=== PATIENT | female | born 1965 | race Two or more races ===

== ENCOUNTER 2018-03-19 15:16 | Emergency (ER) | payer SELFPAY | END 2018-03-19 16:40 | disposition home or self-care (01) | LOC: ER 15:16 | DX: L25.9 Unspecified contact dermatitis, unspecified cause (principal); F17.210 Nicotine dependence, cigarettes, uncomplicated; Z90.710 Acquired absence of both cervix and uterus; Z98.890 Other specified postprocedural states | CPT/HCPCS: 99283 ==

== ENCOUNTER 2019-10-23 15:07 | Emergency (ER) | payer SELFPAY ==
[~2019-10-23] VITALS: Ht 154.9 cm; Wt 81.0 kg
[~2019-10-23 15:07] MED LIST: PRED-220 PO; TRIA15OI TP
--- NOTE | 2019-10-23 15:53 | PHYS DOC ---
Past Medical History Past Medical History: No Pertinent History Past Surgical History: , Hysterectomy Smoking Status: Light Tobacco Smoker Alcohol Use: None Drug Use: None Adult General Chief Complaint Chief Complaint: NEURO SYMPTOMS/DEFICITS [facility] HPI Patient is a 54 year old female patient who presents with some left arm and left face numbness. Patient reports she has had this discomfort to her face for the last 10 days, states for approximately the last month she has had similar discomfort to her left arm. States she had felt some congestion, states she had taken some Mucinex yesterday, which did seem to make her feel better however she has not taken any since then. Also states she had taken a penicillin last night thinking she had an infection, to see if this would help her discomfort. States she has had similar feelings in the past, however not is much that she is having today. States she is a little bit of blurred vision to her left eye, denies photophobia. Denies headache. States most discomfort is from her left eye Review of Systems Review of Systems Constitutional: Denies fever or chills [] Eyes: Denies change in visual acuity, redness, states some discomfort starting left eye, minimal discomfort to[] HENT: Denies nasal congestion or sore throat [] Respiratory: Denies cough or shortness of breath [] Cardiovascular: No additional information not addressed in HPI [] GI: Denies abdominal pain, nausea, vomiting, bloody stools or diarrhea [] : Denies dysuria or hematuria [] Musculoskeletal: Denies back pain or joint pain does state some discomfort and heaviness to her left arm [] Integument: Denies rash or skin lesions [] Neurologic: Denies headache, focal weakness or sensory changes [] Endocrine: Denies polyuria or polydipsia [] All other systems were reviewed and found to be within normal limits, except as documented in this note. Allergies Allergies Allergies Coded Allergies Type Severity Reaction Last Updated Verified No Known Drug Allergies 10/31/14 No Physical Exam Physical Exam Constitutional: Well developed, well nourished, no acute distress, non-toxic appearance. [] HENT: Normocephalic, atraumatic, bilateral external ears normal, oropharynx moist, no oral exudates, nose normal. Tooth #13 with a noted fracture with [place]. No sinus process tenderness, no maxillary or ethmoid sinus discomfort on palpation [] Eyes: PERRLA, EOMI, conjunctiva normal, no discharge. No erythema noted to eye. No discomfort to temporal arteries noted[] Neck: Normal range of motion, no tenderness, supple, no stridor. [] Cardiovascular:Heart rate regular rhythm, no murmur [] Lungs & Thorax: Bilateral breath sounds clear to auscultation [] Abdomen: Bowel sounds normal, soft, no tenderness, no masses, no pulsatile masses. [] Skin: Warm, dry, no erythema, no rash. [] Back: No tenderness, no CVA tenderness. [] Extremities: No tenderness, no cyanosis, no clubbing, ROM intact, no edema. A pressure minestrone, no focal weakness noted. Patient able to resist pressure in all directions with equal strength[] Neurologic: Alert and oriented X 3, normal motor function, normal sensory function, no focal deficits noted. [] Psychologic: Affect normal, judgement normal, mood normal. [] Current Patient Data Vital Signs Vital Signs Date Time Temp Pulse Resp B/P (MAP) Pulse Ox O2 Delivery O2 Flow Rate FiO2 10/23/19 16:48 99.3 75 18 131/66 (87) 98 Room Air 99.3 Lab Values Laboratory Tests Test 10/23/19 17:05 White Blood Count 10.0 x10^3/uL (4.0-11.0) Red Blood Count 4.62 x10^6/uL (3.50-5.40) Hemoglobin 13.2 g/dL (12.0-15.5) Hematocrit 39.1 % (36.0-47.0) Mean Corpuscular Volume 85 fL (79-100) Mean Corpuscular Hemoglobin 29 pg (25-35) Mean Corpuscular Hemoglobin Concent 34 g/dL (31-37) Red Cell Distribution Width 12.9 % (11.5-14.5) Platelet Count 227 x10^3/uL (140-400) Neutrophils (%) (Auto) 64 % (31-73) Lymphocytes (%) (Auto) 28 % (24-48) Monocytes (%) (Auto) 6 % (0-9) Eosinophils (%) (Auto) 1 % (0-3) Basophils (%) (Auto) 1 % (0-3) Neutrophils # (Auto) 6.5 x10^3/uL (1.8-7.7) Lymphocytes # (Auto) 2.8 x10^3/uL (1.0-4.8) Monocytes # (Auto) 0.6 x10^3/uL (0.0-1.1) Eosinophils # (Auto) 0.1 x10^3/uL (0.0-0.7) Basophils # (Auto) 0.1 x10^3/uL (0.0-0.2) Sodium Level 143 mmol/L (136-145) Potassium Level 3.7 mmol/L (3.5-5.1) Chloride Level 104 mmol/L (98-107) Carbon Dioxide Level 28 mmol/L (21-32) Anion Gap 11 (6-14) Blood Urea Nitrogen 9 mg/dL (7-20) Creatinine 0.6 mg/dL (0.6-1.0) Estimated GFR (Cockcroft-Gault) 104.6 BUN/Creatinine Ratio 15 (6-20) Glucose Level 97 mg/dL (70-99) Calcium Level 9.1 mg/dL (8.5-10.1) Magnesium Level 2.4 mg/dL (1.8-2.4) Total Bilirubin 0.4 mg/dL (0.2-1.0) Aspartate Amino Transferase (AST) 14 U/L (15-37) L Alanine Aminotransferase (ALT) 23 U/L (14-59) Alkaline Phosphatase 91 U/L (46-116) Troponin I Quantitative < 0.017 ng/mL (0.000-0.055) C-Reactive Protein, Quantitative 15.9 mg/L (0-3.3) H Total Protein 8.1 g/dL (6.4-8.2) Albumin 3.9 g/dL (3.4-5.0) Albumin/Globulin Ratio 0.9 (1.0-1.7) L Laboratory Tests 10/23/19 17:05 Laboratory Tests 10/23/19 17:05 EKG EKG [] Radiology/Procedures Radiology/Procedures []COMPARISON: None FINDINGS: BRAIN PARENCHYMA: No evidence of acute intraparenchymal hemorrhage or infarct. No abnormal parenchymal density or mass. VENTRICLES & EXTRA-AXIAL SPACES: Ventricles are within normal limits. Basilar cisterns are patent. No pathologic extra-axial fluid collection or mass. ORBITS: Orbital contents are unremarkable. SINUSES: Left maxillary and ethmoid sinus opacification is present with frothy fluid noted in the partially imaged left maxillary sinus. OSSEOUS & SOFT TISSUES: Calvarium and skull base are intact. IMPRESSION: 1. No acute intracranial pathology. 2. Left paranasal sinusitis. Electronically signed by: Della Victor MD (10/23/2019 4:53 PM) [id number] Course & Med Decision Making Course & Med Decision Making Pertinent Labs and Imaging studies reviewed. (See chart for details) [Reviewed results with noted sinus symptoms on imaging. Will treat for sinusitis. 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 Consideration for temporal arteritis, but believe ESR elevation related to sinus condition, with patient not having discomfort on palpation, no eye erythema or visual problem. Dragon Disclaimer Dragon Disclaimer This electronic medical record was generated, in whole or in part, using a voice recognition dictation system. Departure Departure Impression: Primary Impression: Sinusitis Disposition: 01 HOME, SELF-CARE Condition: GOOD Referrals: NO PCP (PCP) Patient Instructions: Sinusitis Additional Instructions: [place] hablemos, parece que el problema es de los sinus. [place] la antibiotico neela recetado para todo los 7 warren y no ana cristina ni bernabe para luego aunque sientes mejor en 3 o 4 warren. Puede natividad ibuprofen o paracetamol para dolor. Si tenga un tos o siente congestion, natividad el Mucinex otro vez shilpi con suficiente agua, porque si no shiloh mucho agua, va dejar mas congestion en el pecho despues. Y llama la dentista para evaluar shirley diente rashid. / As we discussed, it appears the problem you are having is in your sinuses. Take the antibiotic as prescribed for the entire 7 days, and do not leave any pills remaining, even if you feel better after 3-4 days. You may take ibuprofen or tylenol for discomfort. If you have a cough or feel congested, take mucinex again, but with plenty of water as if you do not drink enough water, you will feel chest congestion later. Also, call your dentist to evaluate your tooth Scripts Amoxicillin/Potassium Clav (AUGMENTIN 875-125 TABLET) 1 Each Tablet 1 TAB PO BID for 7 Days, #14 TAB 0 Refills Prov: MALIK FINNEY APRN 10/23/19 Problem Qualifiers Primary Impression: Sinusitis Sinusitis location: frontal Chronicity: acute Recurrence: non-recurrent Qualified Codes: J01.10 - Acute frontal sinusitis, unspecified MALIK FINNEY APRN Oct 23, 2019 15:53
--- NOTE | 2019-10-23 16:56 | RAD ---
EXAM: CT Head without IV contrast INDICATION: Paresthesias to the face TECHNIQUE: Multi-detector row CT images were obtained of the head without the use of IV contrast. All CT scans performed at this facility utilize dose optimization techniques as appropriate to the exam, including the following: Automated exposure control and adjustment of the mA and/or KV according to patient size (this includes techniques or standardized protocols for targeted exams where dose is indication/reason for exam). COMPARISON: None FINDINGS: BRAIN PARENCHYMA: No evidence of acute intraparenchymal hemorrhage or infarct. No abnormal parenchymal density or mass. VENTRICLES & EXTRA-AXIAL SPACES: Ventricles are within normal limits. Basilar cisterns are patent. No pathologic extra-axial fluid collection or mass. ORBITS: Orbital contents are unremarkable. SINUSES: Left maxillary and ethmoid sinus opacification is present with frothy fluid noted in the partially imaged left maxillary sinus. OSSEOUS & SOFT TISSUES: Calvarium and skull base are intact. IMPRESSION: 1. No acute intracranial pathology. 2. Left paranasal sinusitis. Electronically signed by: Della Victor MD (10/23/2019 4:53 PM) [id number]
[2019-10-23 17:13] LABS: BASO # 0.1 x10^3/uL (0.0-0.2); BASO % 1 % (0-3); EOS # 0.1 x10^3/uL (0.0-0.7); EOS % 1 % (0-3); HEMATOCRIT 39.1 % (36.0-47.0); HEMOGLOBIN 13.2 g/dL (12.0-15.5); LYMPH # 2.8 x10^3/uL (1.0-4.8); LYMPH % 28 % (24-48); MEAN CORPUSCULAR HEMOGLOBIN 29 pg (25-35); MEAN CORPUSCULAR HGB CONC 34 g/dL (31-37); MEAN CORPUSCULAR VOLUME 85 fL (79-100); MONO # 0.6 x10^3/uL (0.0-1.1); MONO % 6 % (0-9); NEUT # 6.5 x10^3/uL (1.8-7.7); NEUT % 64 % (31-73); PLATELET COUNT 227 x10^3/uL (140-400); RED BLOOD COUNT 4.62 x10^6/uL (3.50-5.40); RED CELL DISTRIBUTION WIDTH 12.9 % (11.5-14.5)
[2019-10-23 17:21] LABS: CALCIUM 9.1 mg/dL (8.5-10.1); CREATININE 0.6 mg/dL (0.6-1.0); GFR 104.6; POTASSIUM 3.7 mmol/L (3.5-5.1)
[2019-10-23 17:27] LABS: ALBUMIN 3.9 g/dL (3.4-5.0); ALBUMIN/GLOBULIN RATIO 0.9 (1.0-1.7); C-REACTIVE PROTEIN 15.9 mg/L (0-3.3); MAGNESIUM 2.4 mg/dL (1.8-2.4); TOTAL BILIRUBIN 0.4 mg/dL (0.2-1.0); TOTAL PROTEIN 8.1 g/dL (6.4-8.2)
[2019-10-23 17:45] VITALS: BP 131/66
[2019-10-23] MEDS ORDERED: AMOX1TAB61 PO (17:46)
== END 2019-10-23 18:02 | disposition home or self-care (01) ==
LOC: ER 15:07
DX: J01.10 Acute frontal sinusitis, unspecified (principal); H53.8 Other visual disturbances; R09.81 Nasal congestion; R20.0 Anesthesia of skin; Z90.710 Acquired absence of both cervix and uterus; Z98.890 Other specified postprocedural states; Z87.891 Personal history of nicotine dependence
CPT/HCPCS: 36415; 70450; 80053; 83735; 84484; 85025; 86140; 99284